=== PATIENT | male | born 1945 | race Caucasian/White ===

== ENCOUNTER → 2016-12-15 | Outpatient (CLI) | payer MEDICARE ==
--- NOTE | 2016-12-16 14:03 | EST ---
EXERCISE STRESS DATE OF SERVICE: 12/15/2016 AGE: 71 SEX: Male HT: 6'5" WT: PROTOCOL: Trace STAGE: III DURATION OF EXERCISE: 7:30 HEART RATE REST: 68 BLOOD PRESSURE REST: 110/85 MAXIMUM HEART RATE ACHIEVED: 113 MAXIMUM BLOOD PRESSURE: 154/73 85% MPHR: 126 100% MPHR: 148 METS: 4.6 INDICATIONS: CLINICAL INFORMATION: Baseline EKG revealed a normal sinus rhythm with voltage criteria for LVH. Patient walked on a standard Trace protocol protocol for 7 minutes 30 seconds, achieved a maximal heart rate of 113 beats per minute. Developed fatigue and more importantly shortness of breath and therefore stress test was stopped. He had isolated PACs and PVCs. EKG remained inconclusive with LVH type picture, but patient did not have any clear-cut angina. This is an inconclusive stress test with limited exercise capacity and inadequate chronotropic response. The patient, however, did not have angina at the above-mentioned stress level. Inconclusive stress test with inadequate chronotropic response and no subjective symptoms of angina without any significant arrhythmia. If ischemia is suspected strongly, a pharmacological stress test may be useful for this patient. MMODL / IJN: [id number] /
== END ==
LOC: RADNMMAIN 11:09
PROVIDERS: ATTEND Family Medicine
DX: R06.09 Other forms of dyspnea (principal)
CPT/HCPCS: 93017

== ENCOUNTER 2020-07-21 06:42 | Day surgery (SDC) | payer MEDICARE ==
[2020-07-20 08:51] VITALS: BMI 18.5
[~2020-07-21 06:42] MED LIST: ACETAMINOPHEN TAB 500 MG TAB PO PRN; DEXAMETHASONE SOD PHOSPHATE 4 MG/ML 1 ML VIAL IV ONE; HEPARIN SODIUM,PORCINE/PF 5,000 UNIT/0.5 ML SYRINGE SQ PRN; LACTATED RINGERS 1,000 ML IV SCH; LIDOCAINE 1% (10MG/ML) FOR IV START INTRADERMA PRN; ONDANSETRON 4 MG/2 ML VIAL IVP ONE
[2020-07-21] MEDS ORDERED: METOCLOPRAMIDE 5 MG/ML 2 ML VIAL IVP PRN (07:00)
[2020-07-21] MEDS ORDERED: MIDAZOLAM 2 MG/2 ML VIAL IV ONE (08:02)
--- NOTE | 2020-07-21 08:44 | P.GSHP ---
History of Present Illness H&P Date: 07/21/20 Chief Complaint: Right inguinal pain Cyst 75-year-old male who presents today for laparoscopic repair of right inguinal hernia. Patient has had complaints of right inguinal pain. Patient was seen in the office and found to have have a reducible right inguinal hernia Past Medical History Past Medical History: Cancer Additional Past Medical History / Comment(s): HX PROSTATE CANCER APR 2019. History of Any Multi-Drug Resistant Organisms: None Reported Past Surgical History: Prostate Surgery, Tonsillectomy Past Anesthesia/Blood Transfusion Reactions: No Reported Reaction Past Psychological History: No Psychological Hx Reported Smoking Status: Current every day smoker Past Alcohol Use History: Occasional Additional Past Alcohol Use History / Comment(s): SMOKES 1/2 PPD., STARTED SMOKING 1960 Past Drug Use History: None Reported - Past Family History Mother Family Medical History: Chest Pain / Angina, Diabetes Mellitus Additional Family Medical History / Comment(s): IRREG HR Father Additional Family Medical History / Comment(s): GASTRIC ULCERS Brother(s) Family Medical History: Cancer Additional Family Medical History / Comment(s): SKIN Medications and Allergies Home Medications Medication Instructions Recorded Confirmed Type Viagra (Unknown Dose) 1 tab PO DIRECTED PRN 07/20/20 07/20/20 History Allergies Allergy/AdvReac Type Severity Reaction Status Date / Time venom-honey bee Allergy Anaphylaxis Verified 07/21/20 07:12 [bee venom (honey bee)] Surgical - Exam Vital Signs Temp Pulse Resp BP Pulse Ox 97.7 F 58 L 16 137/64 97 07/21/20 07:19 07/21/20 07:19 07/21/20 07:19 07/21/20 07:19 07/21/20 07:19 - General well developed, well nourished, no distress - Eyes PERRL - ENT normal pinna - Neck no masses - Respiratory normal expansion - Cardiovascular Rhythm: regular - Abdomen Abdomen: soft, non tender Hernia: inguinal (Right) Assessment and Plan Assessment: Right inguinal hernia. We'll perform laparoscopic robotic-assisted repair.
[2020-07-21] MEDS ORDERED: PROPOFOL 10 MG/ML 20 ML VIAL IV ONE (09:01)
[2020-07-21] MEDS ORDERED: LIDOCAINE 1%-EPI 1:100,000 20 ML VIAL ONE (09:01)
[2020-07-21] MEDS ORDERED: ROPIVACAINE 5 MG/ML 30 ML VIAL ONE (09:01)
[2020-07-21] MEDS ORDERED: LIDOCAINE 1% INJ 10MG/ML (20 ML MDV) ONE (09:01)
[2020-07-21] MEDS ORDERED: PHENYLEPHRINE-0.9% NACL SYG 1,000 MCG/10 ML SYRINGE ONE (09:01)
[2020-07-21] MEDS ORDERED: fentaNYL (PF) 50 MCG/ML 2 ML AMP ONE (09:01)
[2020-07-21] MEDS ORDERED: GLYCOPYRROLATE 0.2 MG/ML 2 ML VIAL ONE (09:01)
[2020-07-21] MEDS ORDERED: SUCCINYLCHOLINE CHLORIDE 100 MG/5 ML SYR IV ONE (09:01)
[2020-07-21] MEDS ORDERED: ePHEDrine SULFATE/0.9% NACL/PF 50 MG/5 ML SYRINGE IV ONE (09:01)
[2020-07-21] MEDS ORDERED: NEOSTIGMINE 1 MG/ML 10 ML VIAL ONE (09:01)
[2020-07-21] MEDS ORDERED: LIDOCAINE 1%-EPI 1:100,000 20 ML VIAL SQ ONE (09:05)
[2020-07-21] MEDS ORDERED: LACTATED RINGERS 1,000 ML IV ONE (09:55)
[2020-07-21 10:11] VITALS: TEMP 97.9
[2020-07-21] MEDS: HYDROmorphone 0.5 MG/0.5 ML SYRINGE IVP PRN ×4 (10:13→10:56)
[2020-07-21] MEDS ORDERED: KETOROLAC 15 MG/ML 1 ML VIAL IVP ONE (10:15)
--- NOTE | 2020-07-21 10:18 | P.OP ---
Date of Procedure: 07/21/20 Preoperative Diagnosis: Right inguinal hernia Postoperative Diagnosis: Right inguinal hernia Procedure(s) Performed: Laparoscopic robotic-assisted repair of right inguinal hernia Excision of right cord lipoma Anesthesia: AARON Surgeon: Ambrocio Whalen Estimated Blood Loss (ml): 5 Pathology: other (Right cord lipoma) Condition: stable Disposition: PACU Description of Procedure: The patient's placed on the operating table in the supine position. The patient received general anesthesia. The patient's abdomen was prepped and draped in usual sterile fashion. The skin was anesthetized 1% local Xylocaine at the incision sites. Using an 11 blade a skin incision was made at the umbilicus. The fascia was grasped with a [place] and then the peritoneal cavity was entered with the Veress needle. Position of the Veress needle was confirmed with a positive drop test. After adequate insufflation a 5 mm trocar was placed into the peritoneal cavity. The Laparoscope was placed the peritoneal cavity. And a robotic 8 mm trocar was placed in the right lateral position and then another 8 mm robotic trochars placed in the left lateral position. The original 5 mm trocar was exchanged for a 12 mm trocar. The patient was placed in reverse Trendelenburg and then the patient was docked to the robot. Next the peritoneum over top of the hernia was incised and then using blunt and sharp dissection and electrocautery the hernia sac was dissected free from the floor of the inguinal canal. The hernia sac was completely reduced into the peritoneal cavity. And then using the Pro eap counselor mesh the hernia was repaired. The peritoneum was then sutured with 20V lock suture. The patient was then undocked the robot. The needle was withdrawn from the peritoneal cavity. The umbilical trocar site was closed with 0 Ethibond suture. The skin was closed interrupted 3-0 Monocryl suture. Dermabond dressing was applied. Patient was sent to recovery in stable condition.
[2020-07-21 11:11] VITALS: RESP 20
[2020-07-21 12:46] VITALS: BP 144/72; PULSE 50
--- NOTE | 2020-07-21 12:54 | P.ANPRN ---
Procedure Note - Anesthesia - Nerve Block Performed Bilateral Erector Spinae Single Time Out Performed: Yes Date of Procedure: 07/21/20 Procedure Start Time: : Procedure Stop Time: 08:06 Location of Patient: PreOp Indication: Acute Post-Operative Pain, Requested by Surgeon Sedation Type: Sedate with meaningful contact maintained Preparation: Sterile Prep Position: Prone Needle Types: Pajunk Needle Gauge: 21 Ultrasound used to visualize needle placement: Yes Ultrasound used to observe medication spread: Yes Blood Aspirated: No Pain Paresthesia on Injection Noted: No Resistance on Injection: Normal Image Stored and Saved: Yes Events: Uneventful and Well Tolerated (ropi .5% 15cc plu xylo 1% with epi 15cc bilaterally at t10)
== END 2020-07-21 13:07 | disposition home or self-care (01) ==
LOC: OR 06:42
PROVIDERS: ATTEND Surgery
DX: K40.90 Unilateral inguinal hernia, without obstruction or gangrene, not specified as recurrent (principal); D17.1 Benign lipomatous neoplasm of skin and subcutaneous tissue of trunk; F17.210 Nicotine dependence, cigarettes, uncomplicated; Z85.46 Personal history of malignant neoplasm of prostate; Z91.030 Bee allergy status; Z83.3 Family history of diabetes mellitus; Z84.89 Family history of other specified conditions; Z80.8 Family history of malignant neoplasm of other organs or systems
CPT/HCPCS: 64999; 88304; 49650; J2250; J1100; J2710; J0690; J2405; J2001; J3010; J2795; J1885; J2370; J0330; J2704; J1170; J1644